=== PATIENT | male | born 1995 | race Caucasian/White ===

== ENCOUNTER 2021-01-07 12:14 | Outpatient (CLI) | payer BC, SELFPAY ==
[2021-01-07 12:33] LABS: Basophils Absolute Auto 0.02 K/mm3 (0.00-0.10); Basophils Percent Auto 0.4 % (0.0-1.0); Eosinophils Absolute Auto 0.19 K/mm3 (0.02-0.50); Eosinophils Percent Auto 3.4 % (1.0-6.0); Hematocrit 43.7 % (40.0-54.0); Hemoglobin 14.8 g/dL (14.0-18.0); Immature Granulocyte Absolute 0.02 K/mm3 (0.00-0.00); Immature Granulocyte Percent A 0.4 % (0.0-0.0); Lymphocytes Absolute Auto 2.23 K/mm3 (1.10-4.50); Lymphocytes Percent Auto 39.6 % (18.0-42.0); Mean Corpuscular HGB Conc 33.9 g/dL (32.0-36.0); Mean Corpuscular Hemoglobin 30.6 pg (27.0-31.0); Mean Corpuscular Volume 90.5 fL (78.0-102.0); Mean Platelet Volume 10.1 fl (8.7-11.0); Monocytes Absolute Auto 0.49 K/mm3 (0.10-0.90); Monocytes Percent Auto 8.7 % (2.0-11.0); Neutrophils Absolute Auto 2.7 K/mm3 (1.7-7.2); Neutrophils Percent Auto 47.5 % (50.0-70.0); Platelet Count Result 254 K/mm3 (150-420); Red Blood Count 4.83 M/mm3 (4.70-6.10); Red Cell Distribution Width 12.3 % (11.6-14.4); White Blood Count 5.6 K/mm3 (4.8-10.8)
[2021-01-07 12:45] LABS: Add Urine Microscopic? NO; Appearance Urine Clear (Clear); Bilirubin Urine Negative (Negative); Blood Urine Negative (Negative); Color Urine Yellow (Yellow); Glucose Urine UA Negative (Negative); Ketones Urine Negative (Negative); Leukocyte Esterase Ur Negative (Negative); Nitrate Urine Negative (Negative); Protein Urine Negative (Negative); Specific Grav Ur 1.025 (1.010-1.020); Urobilinogen Urine 0.2 mg/dL (0.2-1.0); pH Urine 6.5 (5.0-8.0)
[2021-01-07 13:17] LABS: Alanine Aminotransferase 44 U/L (16-63); Albumin Level 4.1 g/dL (3.4-5.0); Alkaline Phosphatase 60 U/L (46-116); Anion Gap 9 mmol/L (8-16); Aspartate Amino Transferase 21 U/L (15-37); Bilirubin,Total 0.6 mg/dL (0.00-1.00); Blood Urea Nitrogen 16 mg/dL (7-18); Calcium 8.7 mg/dL (8.5-10.1); Carbon Dioxide 28 mmol/L (21-32); Chloride 104 mmol/L (98-108); Cholesterol 240 mg/dL (0-200); Estimated Glomerular Filt Rate > 60; Glucose 92 mg/dL (70-99); HDL Direct 51 mg/dL (40-60); LDL Cholesterol Calculated 159 mg/dL (<130); Osmolality Calculated 293 mOsm/kg (285-295); Potassium 3.9 mmol/L (3.5-5.1); Sodium 141 mmol/L (136-145); Thyroid Stimulating Hormone 0.89 uIU/mL (0.36-3.74); Total Protein 7.3 g/dL (6.4-8.2); Triglycerides 152 mg/dL (0-150)
== END 2021-01-07 12:15 | disposition home or self-care (01) ==
LOC: CHSLAB 12:18
PROVIDERS: PCP Internal Medicine; Visit Provider Internal Medicine
DX: Z00.00 Encounter for general adult medical examination without abnormal findings (principal)
CPT/HCPCS: 36415; 80053; 80061; 81003; 84443; 85025

== ENCOUNTER 2025-09-29 17:34 | Emergency (ER) | payer OTHER, SELFPAY ==
--- NOTE | 2025-09-29 17:48 | ED_ITS ---
HPI - General Adult General Chief complaint: Urogenital-Male Stated complaint: Blood In Urine/Unable To Urinate Time Seen by Provider: 09/29/25 17:38 Source: patient Mode of arrival: ambulatory Limitations: no limitations History of Present Illness HPI narrative: Pt is a 30 y/o male presenting with c/o blood in urine. Pt reports sharp pain to lower back last night, followed by hematuria, dysuria. Reports hx of same with kidney stones. Reports pain has improved and hematuria has resolved however, he still has some stinging with urination. No concern for STI. No tx initiated [employer]. No additional complaints. Related Data Allergies Allergy/AdvReac Type Severity Reaction Status Date / Time No Known Allergies Allergy Verified 09/29/25 17:55 Review of Systems Review of Systems: CONSTITUTIONAL: Denies body aches, fever, chills, or sweats. EYES: Denies visual changes, redness, or discharge. ENT: Denies rhinorrhea, congestion, sore throat, or otalgia. CARDIOVASCULAR: Denies chest pain, palpitations, or edema. RESPIRATORY: Denies cough or dyspnea. GASTROINTESTINAL: Denies abdominal pain, nausea, vomiting, or diarrhea. GENITOURINARY: Reports dysuria, hematuria. SKIN: Denies rash, itching, or wounds. MUSCULOSKELETAL: Denies back pain, joint pain, or myalgia. NEUROLOGIC: Denies headache, numbness, tingling, or weakness. PSYCH: Denies depression or anxiety. All systems reviewed & are unremarkable except as noted in HPI and below Exam Narrative: GENERAL: Well-appearing, well-nourished, and in no acute distress. HEAD: Normocephalic, atraumatic. EYES: EOMI. No redness or drainage. Conjunctivae normal. ENT: Mucous membranes pink and moist. NECK: Normal AROM. Supple. CHEST: No respiratory distress. Clear to auscultation. HEART: Regular rate and rhythm. No murmur appreciated. ABDOMEN: Soft, nontender, nondistended, normal active bowel sounds. No CVAT EXTREMITIES: Normal range of motion. SKIN: Warm, dry, no rash. Capillary refill normal. Normal skin turgor. NEURO: No focal deficits. Alert and oriented x3. Gait steady. PSYCH: Normal affect. No signs of depression or anxiety. Course Course Emergency Course: Discussed elevated blood pressure readings with patient and advised daily BP monitoring and f/u with PCP if persisting. Level of Care: Express Care Visit Vital Signs Vital signs: Vital Signs Temperature 97.8 F 09/29/25 17:50 Pulse Rate 96 09/29/25 17:50 Respiratory Rate 16 09/29/25 17:50 Blood Pressure 145/98 H 09/29/25 17:50 Pulse Oximetry 99 09/29/25 17:50 Temperature 97.8 F 09/29/25 17:50 Pulse Rate 96 09/29/25 17:50 Respiratory Rate 16 09/29/25 17:50 Blood Pressure 145/98 H 09/29/25 17:50 Pulse Oximetry 99 09/29/25 17:50 MDM Differential Diagnosis Differential Diagnosis: dysuria, nephro/ureterolithiasis, STI, UTI Lab Data [facility] Lab Attestation statement: I personally reviewed the patient's lab results. Labs: Lab Results 09/29/25 Range/Units 17:55 POC Urine Color Yellow POC Urine Clarity Clear POC Urine pH 5.5 POC Ur Specif [place] 1.015 POC Urine Protein Negative (Negative) POC Ur Glucose (UA) Negative (Negative) POC Urine Ketones Negative (Negative) POC Urine Blood 2+ (Negative) POC Urine Nitrite Negative (Negative) POC Urine Bilirubin Negative (Negative) POC Urine Urobilinogen 0.2 POC U Leukocyte Esteras Negative (Negative) Discharge Plan Discharge Clinical Impression: Hematuria, Dysuria Patient Disposition: Home Condition: Stable Instructions: Antibiotic Form, Dysuria (ED) Additional Instructions: Go straight to ER should your symptoms become worse or should any new symptoms develop Patient Language: Belgian Prescriptions: New sulfamethoxazole-trimethoprim [Bactrim DS] 800-160 mg tablet 1 tablet PO Q12H 10 Days Qty: 20 0RF Follow-up/Referrals: Patrick Sheridan MD [Primary Care Provider, Internal Medicine] - 09/30/25 Time of Disposition: 18:08
[2025-09-29 17:50] VITALS: BP 145/98; PULSE 96; RESP 16; TEMP 36.6; O2SAT 99
[2025-09-29 18:02] LABS: EDUAAPPEAR Clear; EDUABILI Negative (Negative); EDUABLOOD 2+ (Negative); EDUACOLOR1 Yellow; EDUAGLUCOSE Negative (Negative); EDUAKETONE Negative (Negative); EDUALEUKO Negative (Negative); EDUANITRATE Negative (Negative); EDUAPH 5.5; EDUAPROTEIN Negative (Negative); EDUASPGRAVITY 1.015; EDUAUROBILI 0.2
== END 2025-09-29 18:15 | disposition home or self-care (01) ==
PROVIDERS: Emergency Provider Registered Nurse; PCP Internal Medicine
DX: R31.9 Hematuria, unspecified (principal); R30.0 Dysuria
CPT/HCPCS: 81003; 87086; 99213; G0463

== ENCOUNTER 2025-10-13 10:22 | Emergency (ER) | payer OTHER, SELFPAY ==
--- NOTE | ~2025-10-13 | CT_ITS ---
EXAMINATION: CT abdomen pelvis wo con DATE: 10/13/2025 10:45 INDICATION: Right flank pain TECHNIQUE: Computed tomography (CT) of the abdomen and pelvis was performed without intravenous contrast. The dose-length product was 941.20 mGy-cm. Automated exposure control and iterative reconstruction technique were employed. COMPARISON: CT dated 03/19/2017. FINDINGS: Lung bases unremarkable. Heart size normal. No significant pleural or pericardial effusion. Fatty infiltration of the liver. Gallbladder is present. The spleen, pancreas, adrenal glands are unremarkable. There is a 4 mm nonobstructing left renal stone. There are nonobstructing right renal stone measuring 3 mm. There is a 6 mm right UVJ stone with moderate hydronephrosis. Gallbladder is present. Nonobstructive bowel gas pattern. No abnormal pelvic masses or fluid collections. No left ureteral stones or hydronephrosis. Small fat-containing umbilical hernia. No acute osseous abnormality. No focal lytic or blastic lesions. IMPRESSION: 1. Right UVJ stone measuring 6 mm with moderate hydronephrosis. 2: Nonobstructing bilateral nephrolithiasis. Reviewed, dictated and finalized at location [facility]. [facility]
--- NOTE | ~2025-10-13 | XR_ITS ---
Examination: XR abdomen/kub 1V Clinical History: Kidney stone at right UVJ Comparison: CT today Technique: 2 views AP abdomen Findings/impression: 1. 6 mm stone distal right ureter overlying lower sacrum. 2. Small stone in each kidney on CT not seen on x-ray. 3. No other acute abnormality. Reviewed, dictated and finalized at location R. [facility]
[2025-10-13 10:26] VITALS: BP 188/103; PULSE 72; RESP 20; TEMP 37.2; O2SAT 99
[2025-10-13 11:12] LABS: Hematocrit 43.7 % (42.0-52.0); Hemoglobin 14.9 g/dL (14.0-18.0); Immature Granulocyte Percent A 0.4 % (0-0.5); Lymphocytes Absolute Auto 1.92 K/mm3 (0.9-3.2); Mean Corpuscular HGB Conc 34.1 g/dl (32-36); Mean Corpuscular Hemoglobin 30.1 pg (26-34); Mean Corpuscular Volume 88.3 fl (80-100); Nucleated Red Blood Cells Absolute Auto 0.000 K/mm3 (0.0-0.012); Nucleated Red Blood Cells Perc 0.0 % (0.0-0.2); Platelet Count Result 288 k/mm3 (150-375); Red Blood Count 4.95 M/mm3 (4.6-6.20); White Blood Count 5.2 K/mm3 (4.5-10.0)
[2025-10-13 11:23] LABS: Alanine Aminotransferase 55 U/L (6-50); Albumin Level 4.6 g/dL (3.5-5.1); Alkaline Phosphatase 43 U/L (38-126); Anion Gap 8 mmol/L (4-12); Aspartate Amino Transferase 39 U/L (17-59); Bilirubin,Total 0.9 mg/dL (0.2-1.3); Blood Urea Nitrogen 14 mg/dL (9-20); Calcium 9.3 mg/dL (8.4-10.2); Carbon Dioxide 27 mmol/L (22-30); Chloride 105 mmol/L (98-107); Estimated CRCL calculation 113 ml/min; Estimated Glomerular Filt Rate > 60; Glucose 102 mg/dL (65-110); Potassium 4.4 mmol/L (3.4-5.0); Sodium 140 mmol/L (137-145); Total Protein 7.7 g/dL (6.3-8.2)
[2025-10-13 11:25] LABS: Add Urine Microscopic? YES; Appearance Urine Clear (Clear); Glucose Urine UA Negative (Negative); Leukocyte Esterase Ur Negative LEU/UL (Negative); Nitrate Urine Negative (Negative); Non Pathogenic Casts 0-2; Specific Grav Ur 1.024 (1.001-1.035)
--- NOTE | 2025-10-13 11:49 | ED_ITS ---
HPI - General Adult General Chief complaint: Urogenital-Male Stated complaint: R flank pain Time Seen by Provider: 10/13/25 10:41 History of Present Illness HPI narrative: 30-year-old male prior history of ureteral calculi presents emergency department for evaluation for worsening right flank pain. Patient states the pain started this morning and does feel similar to his previous kidney stones. Patient has passed a kidney stone approximately 6 mm previously. Patient has never had follow-up with Urology. Related Data Allergies Allergy/AdvReac Type Severity Reaction Status Date / Time No Known Allergies Allergy Verified 10/13/25 10:26 Review of Systems 2 Review of Systems: All systems reviewed & are unremarkable except as noted in HPI and below Exam 2 Narrative: APPEARANCE: Uncomfortable appearing HEAD: normocephalic, atraumatic. EYES: PERRLA/EOMI, conjunctivae clear. NOSE: Normal no drainage EARS:TMS clear with good light reflex. THROAT: Pharynx clear, no exudate. NECK: Supple. No adenopathy, no masses. RESPIRATORY: Airway patent, respirations nonlabored. Clear to auscultation bilaterally, no rales, rhonchi, wheezing. CARDIOVASCULAR: Regular rate and rhythm without murmurs rubs or gallops. ABDOMINAL: Soft, nontender, nondistended, normal bowel sounds MUSCULOSKELETAL: Moves all extremities. Strength/ROM intact, No edema, No calf tenderness. NEURO: Alert. Cranial nerves II through XII intact. Good gait. Good coordination SKIN: Warm, dry. Normal Color Course Vital Signs Vital signs: Vital Signs Temperature 99 F 10/13/25 10:26 Pulse Rate 72 10/13/25 10:26 Respiratory Rate 20 10/13/25 10:26 Blood Pressure 188/103 H 10/13/25 10:26 Pulse Oximetry 99 10/13/25 10:26 Oxygen Delivery Room Air 10/13/25 10:26 Temperature 99 F 10/13/25 10:26 Pulse Rate 72 10/13/25 13:47 Respiratory Rate 16 10/13/25 13:47 Blood Pressure 148/86 H 10/13/25 13:47 Pulse Oximetry 98 10/13/25 13:47 Oxygen Delivery Room Air 10/13/25 10:26 [facility] Narrative Medical decision making narrative: 30-year-old male present to the emergency department for evaluation for worsening right flank pain. Patient is afebrile no leukocytosis and hemoglobin of 14.9. Patient has normal kidney function. Patient's urine was negative for urinary tract infection was high an red blood cells. CT scan does show a 6 mm ureteral calculi at the UVJ. Patient was treated with 30 mg of IV Toradol, 1 mg of IV Dilaudid and p.o. Flomax. On re-evaluation patient states he is currently pain-free. Patient was updated results of his workup. Patient was provided a urinal strainer and sample cup. Patient will be provided outpatient follow-up with Urology. Patient was educated on reasons to return to the emergency department. Differential Diagnosis Differential Diagnosis: Ureteral calculi, urinary tract infection, colitis, diverticulitis infected stone Lab Data MDM Lab Attestation statement: I personally reviewed the patient's lab results. 10/13/25 11:04 10/13/25 11:05 Labs: Lab Results 10/13/25 10/13/25 Range/Units 11:04 11:05 WBC 5.2 (4.5-10.0) K/mm3 RBC 4.95 (4.6-6.20) M/mm3 Hgb 14.9 (14.0-18.0) g/dL Hct 43.7 (42.0-52.0) % MCV 88.3 (80-100) fl MCH 30.1 (26-34) pg MCHC 34.1 (32-36) g/dl RDW 12.5 (11.5-14.5) % Plt Count 288 (150-375) k/mm3 MPV 9.7 (7.4-10.4) fl Immature Gran % (Auto) 0.4 (0-0.5) % Neut % (Auto) 51.5 (45.5-73.1) % Lymph % (Auto) 36.9 (18.3-44.2) % [place] % (Auto) 7.7 (2.6-8.5) % Eos % (Auto) 2.9 (0-4.4) % Baso % (Auto) 0.6 (0.2-1.2) % Lymph # (Auto) 1.92 (0.9-3.2) K/mm3 [place] # (Auto) 0.4 (0.1-0.6) K/mm3 Eos # (Auto) 0.2 (0-0.3) K/mm3 Baso # (Auto) 0.0 (0.0-0.1) K/mm3 Abs Immat Gran (auto) 0.02 (0.00-0.031) K/mm3 Absolute Neuts (auto) 2.7 (1.3-6.7) K/mm3 Absolute Nucleated RBC 0.000 (0.0-0.012) K/mm3 Nucleated RBC % 0.0 (0.0-0.2) % Sodium 140 (137-145) mmol/L Potassium 4.4 (3.4-5.0) mmol/L Chloride 105 (98-107) mmol/L Carbon Dioxide 27 (22-30) mmol/L Anion Gap 8 (4-12) mmol/L BUN 14 (9-20) mg/dL Creatinine 1.14 (0.7-1.3) mg/dL Estim Creat Clear Calc 113 ml/min Estimated GFR > 60 (59 - ) Glucose 102 (65-110) mg/dL Calcium 9.3 (8.4-10.2) mg/dL Total Bilirubin 0.9 (0.2-1.3) mg/dL AST 39 (17-59) U/L ALT 55 H (6-50) U/L Alkaline Phosphatase 43 (38-126) U/L Total Protein 7.7 (6.3-8.2) g/dL Albumin 4.6 (3.5-5.1) g/dL Urine Color Yellow (Yellow) Urine Appearance Clear (Clear) Urine pH 5.5 (5.0-9.0) Ur Specific [place] 1.024 (1.001-1.035) Urine Protein 1+ H (Negative) mg/dL Urine Glucose (UA) Negative (Negative) mg/dL Urine Ketones Trace H (Negative) mg/dL Ur Blood (Man) 3+ H (Negative) Urine Nitrate Negative (Negative) Urine Bilirubin Negative (Negative) Urine Urobilinogen 0.2 (<2.0) mg/dL Leukocyte Esterase Rfl Negative (Negative) TJ/UL Urine RBC >100 H (0-2) /hpf Urine WBC 0-5 (0-3) /hpf Ur Squamous Epith Cells None seen (Few) /hpf Urine Bacteria None seen /hpf Urine Casts 0-2 Imaging Data Radiologist's impression: ITS Impressions Abdomen/Pelvis CT 10/13/25 10:48 IMPRESSION: 1. Right UVJ stone measuring 6 mm with moderate hydronephrosis. 2: Nonobstructing bilateral nephrolithiasis. Discharge Plan Discharge Clinical Impression: Calculus, ureteral Patient Disposition: Home Condition: Stable Instructions: Antibiotic Form, Kidney Stones (ED), How to Strain Your Urine (ED) Additional Instructions: Ibuprofen for pain control. [place] as needed for additional pain control. Flomax as directed to help pass the stone. Zofran as needed for nausea. If you have any worsening symptoms please call or return to the emergency department. Have close follow-up with Urology as outpatient. Patient Language: Indonesian Prescriptions: New hydrocodone-acetaminophen 5-325 mg tablet 1 tablet PO Q12H PRN (Reason: pain) Qty: 14 0RF tamsulosin 0.4 mg capsule 0.4 mg PO DAILY 14 Days Qty: 14 0RF ondansetron 4 mg tablet,disintegrating 4 mg PO Q8H PRN (Reason: nausea and vomiting) Qty: 14 0RF No Action sulfamethoxazole-trimethoprim [Bactrim DS] 800-160 mg tablet 1 tablet PO Q12H 10 Days Qty: 20 0RF Follow-up/Referrals: Kalpana Saldana MD [Physician, Urology] Patrick Sheridan MD [Primary Care Provider, Internal Medicine]
[2025-10-13] MEDS: HYDROmorphone HCL INJ (*CRX) 1 MG/ML SYR IV PUSH (11:55)
[2025-10-13] MEDS: KETOROLAC 30 MG/ML VIAL (*BKC) IV PUSH (11:56)
[2025-10-13] MEDS: TAMSULOSIN HCL 0.4 MG CAPSULE PO (11:56)
[2025-10-13 13:47] VITALS: BP 148/86; PULSE 72; RESP 16; O2SAT 98
== END 2025-10-13 13:49 | disposition home or self-care (01) ==
PROVIDERS: Physician Assistant; Emergency Provider Emergency Medicine; PCP Internal Medicine
DX: N20.1 Calculus of ureter (principal)
CPT/HCPCS: 36415; 74018; 74176; 80053; 81001; 85025; 96374; 96375; 99284; A9270; J1171; J1885